=== PATIENT | male | born 1975 | race Caucasian/White ===

== ENCOUNTER 2018-10-28 19:19 | Emergency (ER) | payer MEDICAID ==
[~2018-10-28] VITALS: Ht 167.6 cm; Wt 81.1 kg
[~2018-10-28 19:19] MED LIST: CARI350T PO; IBUP-1542 PO
[2018-10-28 19:32] VITALS: BP 166/81; PULSE 100; RESP 18; Ht 167.6 cm; Wt 81.1 kg
[2018-10-28] MEDS ORDERED: IBUPROFEN 600 MG TAB PO ONE (21:30)
[2018-10-28] MEDS ORDERED: IBUP-1542 PO (23:47)
--- NOTE | 2018-10-28 23:58 | ERD ---
ER Documentation Chief Complaint Chief Complaint slipped and fell about 2 hours ago, c/o pain right ankle HPI This is an otherwise healthy 43-year-old male presents to the ED complaining of right ankle and left shoulder pain status post mechanical trip and fall 3 hours prior to his arrival. Patient states he accidentally inverted his right ankle and fell to the concrete floor. There was no head injury or loss of consciousness. He states he is unable to bear weight since the accident. Patient also complaining of left shoulder pain. He denies any numbness, tinglin g, focal weakness. Denies any neck pain or back pain. No other injuries reported. No medications were taken prior to arrival. ROS All systems reviewed and are negative except as per history of present illness. Medications Home Meds Active Scripts Ibuprofen* (Motrin*) 600 Mg Tab, 600 MG PO Q6H PRN for PAIN AND OR ELEVATED TEM P, #30 TAB Prov:MELISSA DUMONT PA-C 10/28/18 Carisoprodol* (Soma*) 350 Mg Tablet, 350 MG PO TID PRN for MUSCLE SPASMS, #12 TAB Prov:LILLIE COTTO MD 01/21/16 Ibuprofen* (Ibuprofen*) 600 Mg Tablet, 600 MG PO Q8 for PAIN AND/OR INFLAMMATION, #30 TAB Prov:LILLIE COTTO MD 01/21/16 Allergies Allergies: Coded Allergies: No Known Allergy (Unverified , 01/21/16) PMhx/Soc Medical and Surgical Hx: pt denies Medical Hx History of Surgery: Yes (HERNIA REPAIR) Anesthesia Reaction: No Hx Neurological Disorder: No Hx Respiratory Disorders: No Hx Cardiac Disorders: No Hx Psychiatric Problems: No Hx Miscellaneous Medical Probl: Yes (INGUINAL HERNIA) Hx Alcohol Use: No Hx Substance Use: No Hx Tobacco Use: No Smoking Status: Never smoker Physical Exam Vitals Vital Signs Date Temp Pulse Resp B/P (MAP) Pulse Ox O2 O2 Flow FiO2 Time Delivery Rate 10/28/18 99.4 100 18 166/81 98 19:32 (109) Physical Exam Const: No acute distress Head: Atraumatic Eyes: Normal Conjunctiva ENT: Normal External Ears, Nose and Mouth. Neck: Full range of motion. No meningismus. Skin: No petechiae or rashes Back: No midline or flank tenderness Upper Extremity -left Skin: No laceration, or evidence of external trauma Compartments: Soft Motor: Full active range of motion shoulder/elbow/wrist/hand Sensation: Intact shoulder/pinky/middle finger/thumb web space Bones: Nontender humerus/elbow/forearm/wrist/hand Snuffbox: Nontender Joints: No effusion Pulses/Perfusion: 2+ radial, Capillary refill < 2 seconds Lower Extremity -right Skin: No laceration. + Soft tissue swelling of right medial malleolus. Compartments: Soft Motor: + Limited range of motion of the ankle due to pain. Full active range of motion hip/knee/foot Sensation: Intact to light touch FDWS/MF/LF/P surfaces. Bones: + Moderate tenderness to palpation along the right medial malleolus. Nontender knee/proximal tibiafoot Joints: No effusion or laxity Pulses/Perfusion: 2+ DP, Capillary refill < 2 seconds Neur: Awake and alert Psych: Normal Mood and Affect Results 24 hrs Current Medications Medications Dose Sig/Rhoda Start Time Status Last (Trade) Ordered Route PRN Stop Time Admin Dose Reason Admin Ibuprofen 600 mg ONCE ONCE 10/28/18 DC 10/28/18 (Motrin) PO 21:30 10/28/18 21:12 21:31 Procedures/MDM LABS & DIAGNOSTIC IMAGING: PROCEDURE: XR shoulder CLINICAL INDICATION: Pain status post fall TECHNIQUE: AP internal rotation, AP external rotation and scapular Y views of the left shoulder COMPARISON: None FINDINGS: Mineralization is intact. No displaced fracture. Mild acromioclavicular hypertrophy. Focal subacromial spur formation. Glenohumeral joint is intact. Mild hypertrophic change of the greater tuberosity with cystic change. IMPRESSION: 1. No displaced fracture. 2. Mild degenerative changes as above. 3. Follow-up MRI may be obtained if clinically indicated. PROCEDURE: XR ankle CLINICAL INDICATION: Pain status post fall TECHNIQUE: AP, oblique and lateral views of the right ankle COMPARISON: None FINDINGS: Mineralization is intact. No displaced fracture. Cartilage spaces are maintained. Soft tissue fullness in the ankle. IMPRESSION: 1. No displaced fracture. Soft tissue fullness in the ankle. 2. Repeat radiographs in 7-10 days or cross-sectional imaging may be obtained if there is persistent pain or concern for fracture. ED COURSE: The patient was given Motrin The medication was well tolerated and the patient had market improvement in symptoms. The patient remained stable throughout ED course. MEDICAL DECISION MAKING: This is a 43-year-old male presents with an isolated right ankle left shoulder pain status post mechanical trip and fall. He is unable to bear weight without significant pain. Physical exam as above shows soft tissue swelling but otherwise unremarkable. X-ray of the right ankle and left shoulder were unremarkable although I cannot rule out ligamentous injury. I recommended repeat imaging in 1 week if patient is still having significant pain. I have low suspicion for neurovascular injury, compartment syndrome, open fracture, foreign body or any other emergent process. He was placed in an Umer wrap and given crutches for comfort. He was told to follow-up with his regular doctor in 2 days, otherwise return here for any new or worsening symptoms. Umer wrap, crutches Assessment: Neurovascularly intact post splint placement with good fit. PRESCRIPTIONS: Terrellrin SPECIALIST FOLLOW UP RECOMMENDED: None Patient has been advised to follow up with primary care in 1-2 days. Blood Pressure Assessment: Patient's blood pressure was elevated (>120/80) but appears stable without evidence of hypertension emergency or urgency. The patient was counseled about the risks of hypertension and urged to pursue ou tpatient monitoring and therapy within a week with their primary care physician. Departure Diagnosis: Primary Impression: Ankle injury Encounter type: initial encounter Laterality: right Qualified Codes: S99.911A - Unspecified injury of right ankle, initial encounter Additional Impression: Shoulder pain Chronicity: acute Laterality: left Qualified Codes: M25.512 - Pain in left shoulder Condition: Stable Patient Instructions: Treating Ankle Sprains Referrals: [facility] YOU HAVE RECEIVED A MEDICAL SCREENING EXAM AND THE RESULTS INDICATE THAT YOU DO NOT HAVE A CONDITION THAT REQUIRES URGENT TREATMENT IN THE EMERGENCY DEPARTMENT. FURTHER EVALUATION AND TREATMENT OF YOUR CONDITION CAN WAIT UNTIL YOU ARE SEEN IN YOUR DOCTORS OFFICE WITHIN THE NEXT 1-2 DAYS. IT IS YOUR RESPONSIBILITY TO MAKE AN APPOINTMENT FOR FOLOW-UP CARE. IF YOU HAVE A PRIMARY DOCTOR --you should call your primary doctor and schedule an appointment IF YOU DO NOT HAVE A PRIMARY DOCTOR YOU CAN CALL OUR PHYSICIAN REFERRAL HOTLINE AT IF YOU CAN NOT AFFORD TO SEE A PHYSICIAN YOU CAN CHOSE FROM THE FOLLOWING [facility] [address] [facility]. [facility] [address] [facility] [address] [facility] [facility] [address] [facility] [facility] [address] [facility]. [facility]. [address] [facility]. [facility] YOU HAVE RECEIVED A MEDICAL SCREENING EXAM AND THE RESULTS INDICATE THAT YOU DO NOT HAVE A CONDITION THAT REQUIRES URGENT TREATMENT IN THE EMERGENCY DEPARTMENT. FURTHER EVALUATION AND TREATMENT OF YOUR CONDITION CAN WAIT UNTIL YOU ARE SEEN IN YOUR DOCTORS OFFICE WITHIN THE NEXT 1-2 DAYS. IT IS YOUR RESPONSIBILITY TO MAKE AN APPOINTMENT FOR FOLOW-UP CARE. IF YOU HAVE A PRIMARY DOCTOR --you should call your primary doctor and schedule and appointment IF YOU DO NOT HAVE A PRIMARY DOCTOR YOU CAN CALL OUR PHYSICIAN REFERRAL HOTLINE AT . IF YOU CAN NOT AFFORD TO SEE A PHYSICIAN YOU CAN CHOSE FROM THE FOLLOWING [facility] INSTITUTIONS[facility] [address] [place] [address] [facility] [address] [place] [address] [facility] [address] [place] [address] [facility] Urgent Care 7 a.m.- 11 p.m. Every Day of the Week NO APPOINTMENT OR AUTHORIZATION NEEDED Additional Instructions: Please keep the leg elevated and iced for the next few days. Do not put weight on it for the next 1 week. If you are still having symptoms after 1 week, return for repeat x-rays. He can follow-up with your regular doctor in 2 days, otherwise return here for any new or worsening symptoms. Take the Motrin as needed for pain. MELISSA DUMONT PA-C Oct 28, 2018 23:58
== END 2018-10-29 00:11 | disposition home or self-care (01) ==
LOC: FTE 19:19
DX: S99.911A Unspecified injury of right ankle, initial encounter (principal); S49.92XA Unspecified injury of left shoulder and upper arm, initial encounter; W01.198A Fall on same level from slipping, tripping and stumbling with subsequent striking against other object, initial encounter; Y92.9 Unspecified place or not applicable
CPT/HCPCS: 73030; 73610; Z7502; Z7610